=== PATIENT | male | born 1965 | race Caucasian/White ===

== ENCOUNTER 2019-06-14 06:14 | Observation (INO) | payer OTHER ==
[2019-06-14] VITALS (18 sets, daily range): BP systolic 102–129; BP diastolic 43–88
[~2019-06-14] VITALS: Ht 177.8 cm; Wt 133.4 kg
[~2019-06-14 06:14] MED LIST: ASPIR 8181 MG PO; IBUPROFEN 800800 M1 PO; LIPITOR80 MG PO; LISINOPRIL5 MG PO; MUCINEX100 MG PO; PEPCID20 MG PO; SUDAFED 12 HR120 MG PO; XANAX 0.5 MG0.5 MG PO; ZYRTEC10 MG PO
[2019-06-14] MEDS ORDERED: XARELTO20 MG PO (06:57)
[2019-06-14] MEDS ORDERED: PROPAFENONE HC425 MG PO (06:58)
[2019-06-14] MEDS ORDERED: CARDIZEM CD120 MG PO (06:59)
[2019-06-14] MEDS ORDERED: TERBINAFINE HC250 MG PO (07:04)
[2019-06-14 07:09] LABS: ABSOLUTE NEUTROPHILS 4.9 thou/uL (1.4-8.2); EOSINOPHILS 3.4 % (0.0-3.0); HEMATOCRIT 45.5 % (42.0-52.0); HEMOGLOBIN 14.9 gm/dL (14.0-18.0); MCH 28.8 pg (26.0-34.0); MCHC 32.8 g/dL (28.0-37.0); MCV 87.7 fL (80.0-100.0); PLATELET COUNT 244 thou/uL (150-400); POLYS 57.6 % (36.0-66.0); RBC 5.19 mil/uL (4.50-6.00); RDW 14.6 % (10.5-14.5); WBC 8.5 thou/uL (4.0-11.0)
[2019-06-14 07:16] LABS: CALCIUM 9.1 mg/dL (8.5-10.1); CREATININE 0.9 mg/dL (0.7-1.3); POTASSIUM 4.1 mmol/L (3.5-5.1)
[2019-06-14 07:19] LABS: APTT 31.9 Seconds (24.5-32.8); PROTIME 10.4 Seconds (9.3-11.4)
[2019-06-14 07:22] LABS: ALBUMIN 3.5 g/dL (3.4-5.0); TOTAL BILIRUBIN 0.3 mg/dL (<0.1-1.0); TOTAL PROTEIN 6.9 g/dL (6.4-8.2)
--- NOTE | 2019-06-14 15:34 | NUR ---
PT ADMITED FROM [facility]. ADMISSION HX AND ASSESSMENT COMPLETED. VSS. REPORT HAVING STERNAL PAIN BUT DENIED THE NEED FOR PAIN MED. POST OP INSRUCTIONS GIVEN TO PT. PT VERBERLIZE UNDERSTANDING. ON BEDREST FOR 6 HOURS. RIGHT AND LEFT INCISION GROIN C/D/I. NO HEMATOMA NOTED. SR ON TELE. WILL CONTINUE TO MONITOR.
[2019-06-15] VITALS: BP 101/49
--- NOTE | 2019-06-15 02:32 | NUR ---
A/O X 4.DENIES ANY PAIN.RIGHT AND LEFT GROIN SITES C/D/I AND NO SIGNS OF HEMATOMA OR BLEEDING.RHYTHMOL WAS CHANGE TO A TABLET FORM DUE TO UNAVAILABILITY OF CAPSULE.MONITOR SHOWS SINUS RHYTHM.WILL MONITOR AND CONTINUE POC.
[2019-06-15 04:00] VITALS: BP 100/49
[2019-06-15 08:15] VITALS: BP 119/60
--- NOTE | 2019-06-15 08:25 | NUR ---
ANTICIPATING DISCHARGE TODAY. DR. DOOLEY HERE NOW. WILL CONTINUE TO FOLLOW.
[2019-06-15 09:00] VITALS: BP 119/60
[2019-06-15 09:23] VITALS: BP 119/60
--- NOTE | 2019-06-19 12:11 | D ---
[facility] [place] [address] DISCHARGE SUMMARY Name: YEFRI ANNE Room #: 209-P [facility] Marcelle#: [id number] Admission: 06/14/19 ������������������ Attend Phys: Ras Cedillo MD Discharge: 06/15/19 ������������������ Date of : 61 Report #: [id number] THIS REPORT FOR: //name// CC: Ayden Cedillo PREOPERATIVE DIAGNOSES: 1. Paroxysmal atrial fibrillation. 2. Typical atrial flutter. 3. Coronary artery disease. HISTORY: The patient is a 53-year-old who has had AFib and atrial flutter despite antiarrhythmic drugs, here for an ablation. He underwent successful isolation of the pulmonary veins as well as successful ablation of the cavotricuspid isthmus dependent flutter. The procedure was straightforward without any complications, although his transseptal was somewhat challenging. HOSPITAL COURSE: The patient was monitored in the CCU overnight and did well on the day of discharge, he denied any chest pain, shortness of breath, PND, orthopnea, presyncope or syncope. PHYSICAL EXAMINATION HEART: Regular rate and rhythm, no murmurs, rubs, gallops. LUNGS: Clear to auscultation bilaterally. Right groin was healing nicely, and I did remove the incision suture and on telemetry, he remained in sinus rhythm. As such, he was deemed stable for discharge home. He will continue with his diltiazem and his anticoagulation. We will discontinue his propafenone at this time. He will follow up in 2 weeks with my nurse practitioner and see me back in 3 months. We discussed that if he has recurrence of atrial fibrillation in the 3 months post-ablation period that I would recommend initiation of Multaq therapy. ��������������������������������������������� <ELECTRONICALLY SIGNED> ���������������������������������������� By: Ras Cedillo MD ��������������������������������������������� 06/19/19 1211 0849 [id number] Ras Cedillo MD /nt
--- NOTE | 2019-06-19 12:12 | P ---
[facility] [place] [address] PROCEDURE REPORT Name: YEFRI ANNE Flaquito Room #: 209-P [facility] Latha Ibanez#: [id number] Admission: 06/14/19 ������������������ Attend Phys: Ras Cedillo MD Discharge: 06/15/19 ������������������ Date of : 61 Report #: [id number] THIS REPORT FOR: //name// CC: Ayden Cedillo DATE OF SERVICE: 06/14/2019 PREOPERATIVE DIAGNOSES: 1. Paroxysmal atrial fibrillation. 2. Typical atrial flutter. PROCEDURES PERFORMED: 1. Atrial fibrillation ablation, CPT code 96697. 2. 3D mapping EP, CPT code 82245. 3. Intracardiac echocardiogram, CPT code 86115. 4. Second pathway ablation, CPT code 97153. ANESTHESIA: The patient underwent general anesthesia with no anesthesia related complications. DESCRIPTION OF PROCEDURE: The patient underwent informed consent. We discussed the details of the procedure including the risks, which include, but not limited to, bleeding, vascular damage, cardiac perforation as well as stroke or MS. He understood these risks and is willing to proceed. The patient was brought to the EP laboratory in a fasting and unsedated state, prepped and draped in a sterile fashion. I then injected lidocaine to bilateral groin regions and obtained access to bilateral femoral veins. In the right femoral vein, I placed an 8, 9 and 7-[place] short sheaths and in the left femoral vein, I placed an 8-[place] short sheath, all using the modified Seldinger technique. Next, under fluoroscopy, I placed a decapolar catheter easily in the coronary sinus and ice catheter into the right atrium. Using intracardiac ultrasound, I created a detailed 3D geometry of the left atrium and the right atrium. At baseline, the patient was in atrial flutter with an atrial cycle length of 240 milliseconds proximal to distal activation along the CS. The ventricular cycle length was 475 milliseconds. QRS duration was 75 milliseconds, QT interval was 340 milliseconds. Next, I placed a ramp sheath and a [employer] Sorto SmartTouch ThermoCool ablation catheter at the isthmus and the PPI minus tachycardia cycle length was 30 after entrainment. This was consistent with cavotricuspid isthmus dependent flutter. Next, ablation was performed at 40 hong and continuous drag lesion was performed. The posterior aspect of the isthmus had a slight little pocket. I did do a total of 3 lines and finally when I was able to get into this pocket, the atrial flutter terminated and he went into sinus rhythm. He quickly would go in and out of atrial fibrillation after performing this ablation and then, he went into a [address] [address] PROCEDURE REPORT Name: YEFRI ANNE Room #: 209-P [facility] Latha MRockRRock#: [id number] Admission: 06/14/19 ������������������ Attend Phys: Ras Cedillo MD Discharge: 06/15/19 ������������������ Date of : 61 Report #: [id number] second atrial flutter. This atrial flutter had a tachycardia cycle length of around 200 milliseconds and had a very vertical activation along the CS suggesting that this was a left-sided flutter. I removed my ramp sheath and exchanged this for the SL1 sheath and I heparinized the patient and attempted to perform a transseptal. At my first site, then I performed a transseptal with the [place] needle. I crossed to the left atrium and the wire would only enter the left atrial appendage. The patient had evidence of a left common ostium and 2 right-sided veins, but the left common ostium was very posterior and I could not get my wire down into this vessel and I did not feel comfortable crossing into the appendage. Therefore, I decided to perform a second transseptal in a more posterior location. At this time, I was able to get my wire into the left inferior branch of the left common ostium; however, the septum was thickened and hard to cross at this location; therefore, using a [employer] Powerflex 6 mm x 4 cm balloon septum and then I was able to cross with my SL1 sheath and then exchanged over to the cryosheath into the left atrium. Next, using a Lasso catheter, I created a detailed 3D voltage map of the left atrium, which showed that the patient had a left common ostium and superior and inferior branch. He also had a right superior and right inferior branch and there was evidence of an activation suggesting that this atrial flutter was arising from the right superior pulmonary vein. Next, I placed the cryoballoon into the left atrium. I performed a total of 7 freezes in the left common ostium. I performed 3 from the superior branch and 4 from the inferior branch. The attempts were not very good with these freezes, they were around -30 to -34 degrees. It appeared that these vessels were still connected. I therefore turned my attention to the right superior pulmonary vein and I performed phrenic nerve pacing via the decapolar catheter placed at the subclavian vessel. I performed a 4-minute followed by a 3-minute freeze. During the first freeze, the vein isolated within 39 seconds. The patient remained in this atrial flutter. I performed an additional freeze that was less selective with the vessel. During this third freeze, the patient converted to sinus rhythm. For the remainder of the case, he had no more atrial arrhythmias. I think that this was likely the source of the arrhythmia. I turned my attention to the right inferior pulmonary vein. I performed a 4-minute followed by 3-minute freeze and this vein appeared isolated. I then went back to the left common ostium and there still appeared to be some signals and therefore, I performed 2 additional freezes from the left upper branch of the common ostium. These 2 freezes were much better with temperatures that were -40 degrees. At this point, I decided to remove the cryoballoon. I placed a Lasso catheter and created a detailed 3D voltage map of the left atrium and this showed that we had isolated both branches of the left common ostium. There were some large signals coming from the left superior pulmonary vein, but these were due to far-field left atrial appendage signals. I then turned my attention to the right-sided veins and these were also clearly isolated; therefore, I pulled the cryosheath to the right atrium, placed my ablation catheter back into the [address] [address] PROCEDURE REPORT Name: YEFRI ANNE Flaquito Room #: 209-P [facility] Latha Ibanez#: [id number] Admission: 06/14/19 ������������������ Attend Phys: Ras Cedillo MD Discharge: 06/15/19 ������������������ Date of : 61 Report #: [id number] right atrium and I performed differential pacing from the ablation catheter and from CS 9, 10 and there was evidence of bidirectional block with transisthmus conduction time of 145 milliseconds. As such, the procedure was concluded. The patient received systemic protamine and once ACT was within acceptable range, catheters and sheaths were pulled and hemostasis was obtained. A [id number] suture was performed at the right groin. CONCLUSIONS: 1. Successful atrial fibrillation ablation with isolation of the left common ostium in the right superior and right inferior pulmonary veins. 2. Successful ablation of cavotricuspid isthmus dependent flutter with bidirectional block. 3. Termination of his left-sided atrial flutter with isolation of the right superior pulmonary vein. 4. Difficult transseptal requiring balloon septoplasty to cross the cryoablation balloon. ��������������������������������������������� <ELECTRONICALLY SIGNED> ���������������������������������������� By: Ras Cedillo MD ��������������������������������������������� 06/19/19 1212 1226 [id number] Ras Cedillo MD /nt
== END 2019-06-15 10:40 | disposition home or self-care (01) ==
LOC: CATH 06:14 → 2N 13:46
PROVIDERS: ADMIT Internal Medicine Cardiovascular Disease
DX: I48.0 Paroxysmal atrial fibrillation (principal); I48.3 Typical atrial flutter; I25.10 Atherosclerotic heart disease of native coronary artery without angina pectoris; I10 Essential (primary) hypertension; E78.5 Hyperlipidemia, unspecified; E66.9 Obesity, unspecified; Z68.42 Body mass index [BMI] 45.0-49.9, adult; G47.33 Obstructive sleep apnea (adult) (pediatric); Z87.891 Personal history of nicotine dependence; Z79.899 Other long term (current) drug therapy
CPT/HCPCS: 62110; 62900; 65040; 70005